=== PATIENT | female | born 1955 ===

== ENCOUNTER 2018-04-04 01:15 | Emergency (ER) | payer OTHER ==
[2018-04-04 02:25] VITALS: RESP 16; TEMP 98.1
--- NOTE | 2018-04-04 02:43 | ED PDOC ---
HPI: CCC, URI, Sore Throat Time Seen by Provider: 04/04/18 02:24 Chief Complaint (Nursing): ENT Problem Chief Complaint (Provider): ENT Problem History Per: Patient History/Exam Limitations: no limitations Onset/Duration Of Symptoms: Hrs (x1) Current Symptoms Are (Timing): Still Present Additional Complaint(s): Patient is a 62 y/o female with no significant PMHx who presents to the ED for evaluation of a foreign body sensation in throat, onset one hour prior to arrival. The patient states she was eating flan and felt she might have consumed a piece of plastic. Patient declines throat pain, problems speaking, or difficulty eating or drinking. PCP: None Provided Past Medical History Reviewed: Historical Data, Nursing Documentation, Vital Signs Vital Signs: Last Vital Signs Temp 98.1 F 04/04/18 02:22 Pulse 104 H 04/04/18 02:22 Resp 16 04/04/18 02:22 BP 146/84 04/04/18 02:22 Pulse Ox 98 04/04/18 02:22 - Medical History PMH: No Chronic Diseases - Surgical History Surgical History: No Surg Hx - Family History Family History: States: No Known Family Hx - Allergies Allergies/Adverse Reactions: Allergies Allergy/AdvReac Type Severity Reaction Status Date / Time FRUIT Allergy RASH Uncoded 04/04/18 02:21 Review of Systems ROS Statement: Except As Marked, All Systems Reviewed And Found Negative ENT: Positive for: Other (Foreign Body Sensation). Negative for: Throat Pain, Throat Swelling Physical Exam - Reviewed Nursing Documentation Reviewed: Yes Vital Signs Reviewed: Yes - Physical Exam Appears: Positive for: No Acute Distress Head Exam: Positive for: ATRAUMATIC, NORMAL INSPECTION, NORMOCEPHALIC Skin: Positive for: Normal Color Eye Exam: Positive for: Normal appearance ENT: Positive for: Normal ENT Inspection, Pharynx Is (clear). Negative for: Other (Drooling) Neck: Positive for: Normal Gastrointestinal/Abdominal: Positive for: Normal Exam Extremity: Positive for: Normal ROM (Upper/Lower) Neurologic/Psych: Positive for: Alert, Oriented - ECG O2 Sat by Pulse Oximetry: 98 (RA) Pulse Ox Interpretation: Normal Medical Decision Making Medical Decision Making: Time: 226 Plan: CT Neck Soft Tissue w/o Contrast Scribe Attestation: Documented by Walter Gillis acting as a scribe for Sidra Connor MD. Provider Scribe Attestation: All medical record entries made by the Scribe were at my direction and personally dictated by me. I have reviewed the chart and agree that the record accurately reflects my personal performance of the history, physical exam, medic al decision making, and the department course for this patient. I have also personally directed, reviewed, and agree with the discharge instructions and disposition. Disposition - Disposition
--- NOTE | 2018-04-04 04:09 | ED PDOC ---
- ECG O2 Sat by Pulse Oximetry: 98 (RA) Pulse Ox Interpretation: Normal Medical Decision Making Medical Decision Making: Time:399 -- Patient endorsed to me by Dr. Connor, pending CT. Time: 535 CT RESULTS FINDINGS: PHARYNX: Unremarkable appearance of the nasopharynx, oropharyx, and hypopharynx. No pharyngeal mucosal based mass lesions. LARYNX: The larynx is unremarkable. The epiglottis appears normal. RETROPHARYNGEAL SPACE: No retropharyngeal soft tissue swelling or gas. SALIVARY GLANDS: No salivary gland abnormality evident. Unremarkable appearance of the parotid, submandibular, and sublingual glands. LYMPH NODES: No significant lymphadenopathy. THYROID: The thyroid gland is unremarkable. No nodule is evident. BONES: No aggressive appearing osseous lesion. No acute osseous abnormality. IMPRESSION: Unremarkable CT neck with IV contrast. No definite evidence of a foreign body. pt aware of CT results. pt states feels fine. no airway compromise. no trouble breathing. pt will follow up with pcp/ENT if needed if still have symptoms. Electronically signed on Apr 04, 2018 5:36:20 AM EST by: Cholo Lyon M.D., KANDICE Certified By [facility] [employer] [facility] [employer] Trained [facility] and CT Specialist Scribe Attestation: Documented by Liz Vega, acting as a scribe for Constantine Moreno MD. Provider Scribe Attestation: All medical record entries made by the Scribe were at my direction and personally dictated by me. I have reviewed the chart and agree that the record accurately reflects my personal performance of the history, physical exam, medical decision making, and the department course for this patient. I have also personally directed, reviewed, and agree with the discharge instructions and disposition. Disposition - Clinical Impression Clinical Impression: Foreign body sensation in throat - POA Present On Arrival: None - Disposition Referrals: [facility] [Outside] [facility] [Outside] Disposition: Routine/Home Disposition Time: 05:40 Condition: IMPROVED Additional Instructions: follow up with your primary doctor in 1-2 days or if not better return to the ED with any worsening or concerning symptoms Forms: [employer] (Kyrgyz), [employer] (Cymraes) Print Language: MAURITANIAN
[2018-04-04 06:50] VITALS: BP 133/75; PULSE 83
--- NOTE | 2018-04-04 16:36 | CT ---
Date of service: 04/04/2018 PROCEDURE: CT NECK WITHOUT CONTRAST HISTORY: FB sensation COMPARISON: None available. TECHNIQUE: CT of the neck without intravenous contrast. Coronal and sagittal reformats generated. Radiation dose: Total exam DLP = 344.36 mGy-cm. This CT exam was performed using one or more of the following dose reduction techniques: Automated exposure control, adjustment of the mA and/or kV according to patient size, and/or use of iterative reconstruction technique. FINDINGS: NASOPHARYNX: Unremarkable. SUPRAHYOID NECK: Unremarkable oropharynx, oral cavity, parapharyngeal space and retropharyngeal space. The vallecular slightly asymmetric likely due to some encroachment of lingual tonsils and possibly some residual/retained secretion. Free margin of the epiglottis is partially obscured however otherwise appears grossly unremarkable so far as can be determined. Pyriform sinuses are relatively symmetric. INFRAHYOID NECK: Unremarkable larynx, hypopharynx, and supraglottic space. Vocal cords intact. Trachea midline and patent with no large central endoluminal lesions MASS: No large cervical masses or collections.. GLANDS: Parotid and submandibular glands unremarkable. Normal size thyroid gland, without nodule. LYMPH NODES: Multiple small nonspecific bilateral cervical nodes are present none of which appear pathologically enlarged.. CERVICAL SPINE: Mild multilevel degenerative spondylosis of the cervical spine. OTHER FINDINGS: No definitive radiopaque foreign bodies are identified. Minor mucosal thickening noted within right maxillary sinus. Minimal on biapical pleural thickening present. IMPRESSION: No definitive radiopaque foreign bodies are identified.. There is mild asymmetry of the vallecular likely due to encroaching lingual tonsils and some residual-retained secretion. Direct visualization could be performed to exclude soft tissue lesion in this location. The Note that this report was placed in PA review folder for follow up.
[2018-04-05 00:04] VITALS: O2SAT 98
== END 2018-04-04 06:49 | disposition home or self-care (01) ==
LOC: H.ER 01:15
DX: R07.0 Pain in throat (principal)